=== PATIENT | male | born 1955 | race Caucasian/White ===

== ENCOUNTER 2021-09-03 02:42 | Emergency (ER) | payer MEDICARE, SELFPAY ==
[2021-09-03] MEDS ORDERED: Sodium Chloride 0.9% 1000 ML 1,000 ML IV STA (03:04)
[2021-09-03] MEDS ORDERED: Hydromorphone 1 mg/ml Injection IV ONE (03:04)
[2021-09-03] MEDS ORDERED: Zofran 4 MG/2 ML VIAL IV ONE (03:04)
--- NOTE | 2021-09-03 03:04 | ERPHSYRPT ---
- History of Present Illness Time Seen by Provider: 09/03/21 03:04 Historian: patient Exam Limitations: no limitations Physician History: This is a 66 y/o white male pt of dr. luna who presents with llq abd pain severe ache with intermittent sharp pain assoc with n/v and dry heaves. pt is a diabetic and has htn, elevated cholesterol. he has not had abd surgeries in the past. pt lives alone and drove himself to hospital. he's never had a colonscopy. pt just returned from [place]. he states he had diarrhea the latter part of that trip but none since he has been home Timing/Duration: yesterday Activities at Onset: none Quality: aching, sharpness Abdominal Pain Onset Location: LLQ Pain Radiation: no radiation Severity of Pain-Max: moderate Severity of Pain-Current: moderate Modifying Factors: Improves With: vomiting Associated Symptoms: loss of appetite, nausea, vomiting Previous symptoms: no prior history Allergies/Adverse Reactions: Sulfa (Sulfonamide Antibiotics) [Sulfa(Sulfonamide Antibiotics)] Allergy (Verified 09/03/21 02:48) tongue swelling Home Medications: Atorvastatin Calcium [Lipitor] 1 tab PO HS 09/03/21 [History] Empagliflozin [Jardiance] 25 mg PO DAILY 09/03/21 [History] Insulin Detemir [Levemir] 50 unit SQ BID 09/03/21 [History] Lisinopril 10 mg [Zestril 10 MG] 1 tab PO DAILY 09/03/21 [History] Metformin HCl 850 mg [Glucophage 850 MG] 1 tab PO TID 09/03/21 [History] Semaglutide [Ozempic] 0.5 mg SQ WEEKLY 09/03/21 [History] Hx Tetanus, Diphtheria Vaccination/Date Given: No Hx Influenza Vaccination/Date Given: No Hx Pneumococcal Vaccination/Date Given: No Travel Risk - International Travel Have you traveled outside of the country in past 3 weeks: No - Coronavirus Screening Are you exhibiting any of the following symptoms?: No Close contact with a COVID-19 positive Pt in past 14-21 Days: No - Review of Systems Constitutional: No Symptoms Eyes: No Symptoms Ears, Nose, & Throat: No Symptoms Respiratory: No Symptoms Cardiac: No Symptoms Abdominal/Gastrointestinal: Abdominal Pain, Nausea, Vomiting Genitourinary Symptoms: No Symptoms Musculoskeletal: No Symptoms Skin: No Symptoms Neurological: No Symptoms Psychological: No Symptoms Endocrine: No Symptoms Hematologic/Lymphatic: No Symptoms Immunological/Allergic: No Symptoms All Other Systems: Reviewed and Negative - Past Medical History Pertinent Past Medical History: Yes Neurological History: No Pertinent History ENT History: No Pertinent History Cardiac History: High Cholesterol, Hypertension Respiratory History: Sleep Apnea Endocrine Medical History: Diabetes Type II Musculoskeletal History: No Pertinent History GI Medical History: No Pertinent History History: No Pertinent History Psycho-Social History: Anxiety, Depression Male Reproductive Disorders: No Pertinent History - Past Surgical History Past Surgical History: No Neuro Surgical History: No Pertinent History Cardiac: Cardiac Catheterization Respiratory: No Pertinent History Gastrointestinal: No Pertinent History Genitourinary: No Pertinent History Musculoskeletal: No Pertinent History Male Surgical History: No Pertinent History Other Surgical History: never received anesthesia. - Social History Smoking Status: Never smoker How long have you smoked: 40 years Exposure to second hand smoke: No Drug Use: none Patient Lives Alone: No - Nursing Vital Signs Nursing Vital Signs: Initial Vital Signs Temperature 97.4 F 09/03/21 02:50 Pulse Rate 85 09/03/21 02:50 Respiratory Rate 20 09/03/21 02:50 Blood Pressure 155/87 09/03/21 02:50 O2 Sat by Pulse Oximetry 96 09/03/21 02:50 Pain Scale Pain Intensity 3 - Physical Exam General Appearance: mild distress, alert, anxiety Eye Exam: PERRL/EOMI, eyes nml inspection Ears, Nose, Throat Exam: normal ENT inspection, moist mucous membranes Neck Exam: normal inspection, non-tender, supple, full range of motion Respiratory Exam: normal breath sounds, lungs clear, airway intact, No chest tenderness, No respiratory distress Cardiovascular Exam: regular rate/rhythm, normal heart sounds, normal peripheral pulses Gastrointestinal/Abdomen Exam: soft, normal bowel sounds, tenderness (llq), guarding (llq), rebound Rectal Exam: not done Back Exam: normal inspection, normal range of motion, No CVA tenderness, No vertebral tenderness Extremity Exam: normal inspection, normal range of motion, pelvis stable Neurologic Exam: alert, oriented x 3, cooperative, special education case manager II-XII nml as tested, normal mood/affect, nml cerebellar function, nml station & gait, sensation nml Skin Exam: normal color, warm, dry Lymphatic Exam: No adenopathy SpO2 Interpretation: normal O2 Delivery: Room Air Ordered Tests: Active Orders 24 hr Category Date Time Status IV Insertion STAT Care 09/03/21 03:04 Active ABDOMEN AND PELVIS W/0 CONTRAS [CT] Stat Exams 09/03/21 03:04 Taken AMYLASE Stat Lab 09/03/21 03:22 Completed CBC W DIFF Stat Lab 09/03/21 03:22 Completed CMP Stat Lab 09/03/21 03:22 Completed LIPASE Stat Lab 09/03/21 03:22 Completed Lactic Acid Stat Lab 09/03/21 03:13 Completed Lactic Acid Stat Lab 09/03/21 05:23 Received UA W/RFX CULTURE Stat Lab 09/03/21 05:23 Ordered Medication Summary Discontinued Medications Generic Name Dose Route Start Last Admin Trade Name Freq PRN Reason Stop Dose Admin Hydromorphone HCl 1 mg 09/03/21 03:04 09/03/21 03:37 Hydromorphone 1 Mg/1ml Inj 1 Mg/Ml Syringe IV 09/03/21 03:05 1 mg STAT ONE Administration Hydromorphone HCl Confirm 09/03/21 03:36 Hydromorphone 1 Mg/1ml Inj 1 Mg/Ml Syringe Administered 09/03/21 03:37 Dose 1 mg .ROUTE .STK-MED ONE Sodium Chloride 1,000 mls @ 999 mls/hr 09/03/21 03:04 09/03/21 04:35 Sodium Chloride 0.9% 1000 Ml IV 09/03/21 04:04 Infused .Q1H1M STA Infusion Sodium Chloride Confirm 09/03/21 03:32 Sodium Chloride 0.9% 1000 Ml Administered 09/03/21 03:33 Dose 1,000 mls @ ud .ROUTE .STK-MED ONE Ondansetron HCl 4 mg 09/03/21 03:04 09/03/21 03:10 Ondansetron Hcl 4 Mg/2 Ml Vial IV 09/03/21 03:05 4 mg STAT ONE Administration Ondansetron HCl Confirm 09/03/21 03:07 Ondansetron Hcl 4 Mg/2 Ml Vial Administered 09/03/21 03:08 Dose 4 mg .ROUTE .STK-MED ONE Lab/Rad Data: Laboratory Result Diagrams 09/03/21 03:22 09/03/21 03:22 Laboratory Results 09/03/21 09/03/21 09/03/21 Range/Units 03:22 03:22 03:13 WBC 11.0 H (4.0-10.5) K/mm3 RBC 5.78 H (4.1-5.6) M/mm3 Hgb 17.4 (12.5-18.0) gm/dl Hct 51.7 H (42-50) % MCV 89.4 (78-100) fl MCH 30.1 (26-32) pg MCHC 33.7 (32-36) g/dl RDW 13.2 (11.5-14.0) % Plt Count 199 (150-450) K/mm3 MPV 9.9 (7.5-11.0) fl Gran % 77.7 H (36.0-66.0) % Eos # (Auto) 0.05 (0-0.5) Absolute Lymphs (auto) 1.39 (1.0-4.6) Absolute Monos (auto) 0.98 (0.0-1.3) Lymphocytes % 12.6 L (24.0-44.0) % Monocytes % 8.9 (0.0-12.0) % Eosinophils % 0.5 (0.00-5.0) % Basophils % 0.3 (0.0-0.4) % Absolute Granulocytes 8.55 H (1.4-6.9) Basophils # 0.03 (0-0.4) Sodium 136 L (137-145) mmol/L Potassium 4.5 (3.5-5.1) mmol/L Chloride 100 (98-107) mmol/L Carbon Dioxide 27 (22-30) mmol/L Anion Gap 13.6 (5-15) MEQ/L BUN 18 (9-20) mg/dL Creatinine 0.80 (0.66-1.25) mg/dL Estimated GFR > 60.0 ML/MIN Glucose 304 H (74-106) mg/dL Lactic Acid 2.7 H (0.4-2.0) Calcium 9.5 (8.4-10.2) mg/dL Total Bilirubin 1.00 (0.2-1.3) mg/dL AST 22 (17-59) U/L ALT 22 (0-50) U/L Alkaline Phosphatase 93 (38-126) U/L Serum Total Protein 6.8 (6.3-8.2) g/dL Albumin 4.2 (3.5-5.0) g/dL Amylase 68 (30-110) U/L Lipase 720 H (23-300) U/L - Progress Progress: improved, pain not gone completely, re-examined Progress Note: 09/03/21 05:36 ct abd/pelvis-proximal left 5mm ureteral stone with mild hydronephrosis. right kidney nodules 09/03/21 05:37 Counseled pt/family regarding: lab results, diagnosis, need for follow-up, rad results - Departure Departure Disposition: Home Clinical Impression: Ureteral stone with hydronephrosis, Nodule of kidney Condition: Stable Critical Care Time: No Referrals: MARLENA LUNA MD [Primary Care Provider] - Follow up/PCP as directed Additional Instructions: drink plenty of fluids. follow up with urologist today by phone for further management. add ibuprofen 600mg orally 3 times daily with food for 5 days Prescriptions: Hydrocodone/APAP 5/325 [[place] 5/325 mg] 1 each PO Q8H PRN PRN #8 tablet MDD 3 PRN Reason: Pain Tamsulosin HCl 0.4 mg [Flomax 0.4 MG] 0.4 mg PO DAILY #7 cap
[2021-09-03] MEDS ORDERED: Zofran 4 MG/2 ML VIAL ONE (03:07)
[2021-09-03 03:24] LABS: Absolute Neutrophil Ct (ANC) 8.55 (1.4-6.9); Basophil (Absolute #) 0.03 (0-0.4); Eosinophil % 0.5 % (0.00-5.0); Eosinophil (Absolute #) 0.05 (0-0.5); Hematocrit 51.7 % (42-50); Hemoglobin 17.4 gm/dl (12.5-18.0); Lymphocyte (Absolute #) 1.39 (1.0-4.6); Lymphocytes % 12.6 % (24.0-44.0); Mean Cell Volume 89.4 fl (78-100); Mean Corpuscular Hemoglobin 30.1 pg (26-32); Mean Corpuscular Hgb Concent. 33.7 g/dl (32-36); Mean Platelet Volume 9.9 fl (7.5-11.0); Monocyte (Absolute #) 0.98 (0.0-1.3); Monocytes % 8.9 % (0.0-12.0); Neutrophil % 77.7 % (36.0-66.0); Platelet Count 199 K/mm3 (150-450); Red Blood Count 5.78 M/mm3 (4.1-5.6); Red Cell Distribution Width 13.2 % (11.5-14.0)
[2021-09-03] MEDS ORDERED: Sodium Chloride 0.9% 1000 ML 1,000 ML ONE (03:32)
[2021-09-03 03:35] LABS: ALBUMIN 4.2 g/dL (3.5-5.0); ALKALINE PHOSPHATASE 93 U/L (38-126); AMYLASE 68 U/L (30-110); ANION GAP 13.6 MEQ/L (5-15); BLOOD UREA NITROGEN 18 mg/dL (9-20); CHLORIDE 100 mmol/L (98-107); Calcium 9.5 mg/dL (8.4-10.2); Carbon Dioxide 27 mmol/L (22-30); EST GLOMERULAR FILTRATION RATE > 60.0 ML/MIN; Glucose 304 mg/dL (74-106); LIPASE 720 U/L (23-300); Potassium 4.5 mmol/L (3.5-5.1); SGOT/AST 22 U/L (17-59); SGPT/ALT 22 U/L (0-50); SODIUM 136 mmol/L (137-145); Total Protein 6.8 g/dL (6.3-8.2)
[2021-09-03] MEDS ORDERED: Hydromorphone 1 mg/ml Injection ONE (03:36)
[2021-09-03 05:37] LABS: Appearance CLEAR (CLEAR); Bilirubin NEGATIVE (NEGATIVE); Glucose 1000 mg/dL (NEGATIVE); Ketones TRACE (NEGATIVE)
[2021-09-03 05:38] LABS: Dipstick done @ ? MAIN LAB; Nitrite NEGATIVE (NEGATIVE); Protein,Urine Dip NEGATIVE (Negative); RBC LARGE Ery/ul (0-5); Urobilinogen 0.2 mg/dL (0-1)
[2021-09-03 05:39] LABS: Mucus SLIGHT /HPF (NEGATIVE); RBC 51-100 /HPF (0-2); WBC 0-2 /HPF (0-5)
[2021-09-03 05:40] LABS: Urine Cultured Indicated? NO
[2021-09-03] MEDS ORDERED: TORAdol 30 mg Injection IV ONE (05:42)
[2021-09-03] MEDS ORDERED: TORAdol 30 mg Injection ONE (05:43)
[2021-09-03 07:42] VITALS: BP 103/66; PULSE 72; O2SAT 98
--- NOTE | 2021-09-03 09:08 | XRAY ---
Indication: Right lower quadrant pain. Multiple contiguous axial images obtained through the abdomen and pelvis without contrast. Comparison: November 03, 2015. Lung bases again demonstrates mild bibasilar dependent atelectasis. Heart not enlarged. Noncontrasted stomach and bowel loops appear nonobstructed. Normal appendix. New 5-6 mm proximal left ureter calculus, approximately L3 level. Left kidney is moderately hydronephrotic favoring obstructive uropathy. No free fluid/air. Stable nonspecific bilateral perinephric stranding and bilateral renal cysts. Remaining liver, gallbladder, pancreas, spleen, adrenal glands, kidneys, ureters, and bladder are unremarkable for noncontrast exam. Again minimal aortic calcifications without AAA. Osseous structures intact again with osteopenia, mild/moderate degenerative changes throughout the thoracolumbar spine, and minimal dextroscoliosis. Stable small fatty bilateral inguinal hernias. Impression: 1. New 5-6 mm proximal left ureteral calculus producing obstructive uropathy as detailed. 2. Again chronic findings including nonspecific bilateral perinephric stranding, bilateral renal cysts, small bilateral fatty inguinal hernias, and chronic bony findings. Comment: Preliminary interpretation made by [facility]. No critical discrepancy.
== END 2021-09-03 07:48 | disposition home or self-care (01) ==
LOC: ED 02:42
DX: N13.2 Hydronephrosis with renal and ureteral calculous obstruction (principal); Q61.02 Congenital multiple renal cysts; R10.32 Left lower quadrant pain; R11.2 Nausea with vomiting, unspecified; E78.5 Hyperlipidemia, unspecified; I10 Essential (primary) hypertension; E11.9 Type 2 diabetes mellitus without complications; Z79.4 Long term (current) use of insulin; Z79.899 Other long term (current) drug therapy; Z79.891 Long term (current) use of opiate analgesic
CPT/HCPCS: 36000; 36415; 74176; 80053; 81015; 82150; 83605; 83690; 85025; 96374; 96375; 99284; J1170; J1885; J2405

== ENCOUNTER 2024-11-28 15:32 | Emergency (ER) | payer MEDICARE ==
[2024-11-28 15:50] VITALS: PULSE 86; TEMP 97.7
[2024-11-28] MEDS ORDERED: XYLOCAINE 2% HCL 20 ML MDV ONE (16:10)
--- NOTE | 2024-11-28 16:44 | ERPHSYRPT ---
- History of Present Illness Source: patient Exam Limitations: no limitations Patient Subjective Stated Complaint: patient got his left hand ring and left pinky finger caught underneath garage door Triage Nursing Assessment: patient came to ed with a laceration to left hand ring finger measuring 4 cm x 1.5 cm with scant amount of bleeding noted, small laceration also noted to left hand pinky finger measuring 1.3cm x 3 cm with scant amount of bleeding, cleansed with hibiclens and sterile water, pulses and all other vitals WNL Physician History: Patient got his finger caught in between a garage door and the railing. He has a laceration anteriorly along his fourth finger. It is about the length of the finger from the base to the tipIt is jagged. Occurred: just prior to arrival Allergies/Adverse Reactions: Sulfa (Sulfonamide Antibiotics) [Sulfa(Sulfonamide Antibiotics)] Allergy (Verified 11/28/24 15:50) tongue swelling Home Medications: Atorvastatin Calcium [Lipitor] 1 tab PO HS 09/03/21 [History] Empagliflozin [Jardiance] 25 mg PO DAILY 09/03/21 [History] Insulin Detemir [Levemir] 50 unit SQ BID 09/03/21 [History] Lisinopril 10 mg [Zestril 10 MG] 1 tab PO DAILY 09/03/21 [History] Metformin HCl 850 mg [Glucophage 850 MG] 1 tab PO TID 09/03/21 [History] Semaglutide [Ozempic] 0.5 mg SQ WEEKLY 09/03/21 [History] Hx Tetanus, Diphtheria Vaccination/Date Given: No Hx Influenza Vaccination/Date Given: No Hx Pneumococcal Vaccination/Date Given: No Travel Risk - International Travel Have you traveled outside of the country in past 3 weeks: No - Emerging Infectious Disease Are you exhibiting symptoms associated with any current EIDs: No - Review of Systems Constitutional: No Symptoms Eyes: No Symptoms Cardiac: No Symptoms Musculoskeletal: Other (See HPI) Skin: No Symptoms Neurological: No Symptoms, Dizziness Psychological: No Symptoms - Past Medical History Pertinent Past Medical History: Yes Neurological History: No Pertinent History ENT History: No Pertinent History Cardiac History: High Cholesterol, Hypertension Respiratory History: Sleep Apnea Endocrine Medical History: Diabetes Type II Musculoskeletal History: No Pertinent History GI Medical History: No Pertinent History History: No Pertinent History Psycho-Social History: Anxiety, Depression Male Reproductive Disorders: No Pertinent History 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 - Social History Smoking Status: Never smoker How long have you smoked: 40 years Exposure to second hand smoke: No Drug Use: none - Social Determinants of Health Will the patient participate in the screening: Yes Do you worry about a steady place to live?: No Do you have any problems with any of the following?: No known problems In the past 12 months,have you had to go without utilities?: No Transportation Issues: No Has anyone in your support network made you feel unsafe?: No Have you or anyone in your house had to go w/o enough food: No - Nursing Vital Signs Nursing Vital Signs: Initial Vital Signs Temperature 97.7 F 11/28/24 15:33 Pulse Rate 86 11/28/24 15:33 Respiratory Rate 18 11/28/24 15:33 Blood Pressure 145/81 11/28/24 15:33 O2 Sat by Pulse Oximetry 96 11/28/24 15:33 Pain Scale Pain Intensity 2 - Physical Exam General Appearance: no apparent distress Wrist Exam: normal inspection Hand Exam: laceration (Laceration palmar surface of the left fourth finger. Peripheral neurovascular is intact. He had good function of his tendons. He was able to make a fist and keep it closed it was painful but he had good strength.) Neuro/Tendon Exam: normal sensation, normal motor functions, normal tendon functions, responds to pain, no evidence tendon injury Mental Status Exam: alert, oriented x 3 Skin Exam: normal color, warm, dry SpO2: 96 - Course Nursing assessment & vital signs reviewed: Yes Ordered Tests: Active Orders 24 hr Category Date Time Status FINGER(S) Stat Exams 11/28/24 16:37 Completed Medication Summary Discontinued Medications Generic Name Dose Route Start Last Admin Trade Name Freq PRN Reason Stop Dose Admin Cefazolin Sodium 1 g 11/28/24 17:16 11/28/24 17:31 Cefazolin Sodium 1 Gm Vial IM 11/28/24 17:17 1 g STAT ONE Administration Cefazolin Sodium Confirm 11/28/24 17:22 Cefazolin Sodium 1 Gm Vial Administered 11/28/24 17:23 Dose 1 g .ROUTE .STK-MED ONE Cephalexin HCl 500 mg 11/28/24 17:16 11/28/24 17:30 Cephalexin Mh500 Mg Capsule PO 11/28/24 17:17 500 mg STAT ONE Administration Cephalexin HCl Confirm 11/28/24 17:22 Cephalexin Mh500 Mg Capsule Administered 11/28/24 17:23 Dose 500 mg .ROUTE .STK-MED ONE Diphtheria/Tetanus/Acell Pertussis 0.5 ml 11/28/24 17:31 11/28/24 17:36 Tdap --Diph,Pertuss(Acell),Tet Vac/Pf 0.5 Ml Vial IM 11/28/24 17:32 0.5 ml .ONCE ONE Administration Diphtheria/Tetanus/Acell Pertussis Confirm 11/28/24 17:33 Tdap --Diph,Pertuss(Acell),Tet Vac/Pf 0.5 Ml Vial Administered 11/28/24 17:34 Dose 0.5 ml IM .STK-MED ONE Lidocaine HCl Confirm 11/28/24 16:10 Lidocaine Hcl 2% 20 Ml Mdv Administered 11/28/24 16:11 Dose 1 ml .ROUTE .STK-MED ONE - Progress Progress: improved Progress Note: An x-ray was done. It showed no acute findings. Procedure note a digital block was done with lidocaine 2%. Good anesthesia was obtained. The wound was explored in bloodless field. It was more than I could do in the ER and get an adequate result. I called our orthopedist Dr. Arauz he got a picture of it and said it was too much for him. I then called Dr. Farias. He said for me to just start him on some antibiotics and approximated to the best of my ability put a tube gauze on it and have him call their office in the next day or 2. That is what we did. Procedure noteThe wound was repaired with 4-0 Ethilon. There is actually pretty good approximation of the margins. Patient had good peripheral neurovascular function after the procedure. 11/28/24 16:43 11/28/24 17:45 - Departure Departure Disposition: Home Clinical Impression: Laceration of finger Condition: Stable Critical Care Time: No Referrals: MARLENA LUNA MD [Primary Care Provider, INTERNAL MEDICINE] - Follow up/PCP as directed Instructions: Onur - ED discharge instructions Additional Instructions: Leave the dressing on until your appointment Call and ask for Dr. Farias. Do not let them put you on with the nurse practitioner be sure you get Dr. Farias Take antibiotics as directed [phone] Prescriptions: Amox Tr/Potass Clav. 875 mg [Augmentin 875-125 Tablet] 875 mg PO BID #14 tablet
--- NOTE | 2024-11-28 17:03 | XRAY ---
Indication: 4th finger crush injury. Comparison: None 3 view left 4th finger demonstrates distal soft tissue swelling/laceration anteriorly. No other bony, articular, or soft tissue abnormalities.
[2024-11-28] MEDS ORDERED: KEFZOL 1 GM ONE (17:22)
[2024-11-28] MEDS ORDERED: KEFLEX 500 MG ONE (17:22)
[2024-11-28] MEDS: KEFLEX 500 MG PO ONE (17:30)
[2024-11-28] MEDS: KEFZOL 1 GM IM ONE (17:31)
[2024-11-28] MEDS ORDERED: Adacel Vial IM ONE (17:33)
[2024-11-28] MEDS: Adacel Vial IM ONE (17:36)
[2024-11-28 18:17] VITALS: BP 142/78; RESP 16; O2SAT 98
== END 2024-11-28 18:17 | disposition home or self-care (01) ==
LOC: ED 15:32
DX: S61.215A Laceration without foreign body of left ring finger without damage to nail, initial encounter (principal); W23.2XXA Caught, crushed, jammed or pinched between a moving and stationary object, initial encounter; I10 Essential (primary) hypertension; E11.9 Type 2 diabetes mellitus without complications; Z79.84 Long term (current) use of oral hypoglycemic drugs; Z79.85 Long-term (current) use of injectable non-insulin antidiabetic drugs; Z79.899 Other long term (current) drug therapy